=== PATIENT | female | born 1970 | race Caucasian/White ===

== ENCOUNTER 2021-03-20 16:20 | Outpatient (CLI) | payer BC, MEDICARE | END 2021-03-20 16:21 | disposition home or self-care (01) | LOC: CSHMRI 16:20 | PROVIDERS: ATTEND Specialist | DX: M54.14 Radiculopathy, thoracic region (principal) | CPT/HCPCS: 72146 ==

== ENCOUNTER 2021-09-21 10:39 | Outpatient (CLI) | payer BC, MEDICARE | END 2021-09-21 10:40 | disposition home or self-care (01) | LOC: CSHCT 10:39 | PROVIDERS: ATTEND Specialist | DX: R91.1 Solitary pulmonary nodule (principal) | CPT/HCPCS: 71260 ==

== ENCOUNTER 2022-06-25 17:11 | Emergency (ER) | payer BC, MEDICARE ==
[2022-06-25] MEDS ORDERED: Ketorolac Tromethamine 30 MG/ML VIAL ONE (18:48)
[2022-06-25] MEDS ORDERED: Morphine 10 MG/ML VIAL ONE (18:49)
[2022-06-25 19:07] LABS: Bilirubin Neg (Negative); Blood, Urine 25 (Negative); Clarity Clear (Clear); Glucose, Urine (Dipstick) Normal (Negative); Ketone, Urine Negative (Negative); Leukocyte Negative (Negative); Nitrite Negative (Negative); Protein, Urine (Dipstick) Negative (Neg-Trace); Urobilinogen Normal mg/dL (Less than 2)
[2022-06-25 19:16] LABS: Pregnancy Test - Urine (BHCG) Negative (Negative); Pregu Control Background? CLEAR/WHITE (CLR/WHITE); Pregu Control Bar Appear? YES (CONTROL BAR)
[2022-06-25 19:17] LABS: Bacteria/HPF None Seen HPF (None Seen); RBC/HPF None Seen HPF (0-3); Squamous Epithelial 0-3 HPF (0-3); WBC/HPF None Seen HPF (0-3)
[2022-06-25] MEDS ORDERED: HYDROcodone/Acetaminophen 10/325 mg Tablet ONE (20:21)
== END 2022-06-25 20:30 | disposition home or self-care (01) ==
LOC: CSHERS 17:11
DX: M54.50 Low back pain, unspecified (principal); G89.29 Other chronic pain; E05.90 Thyrotoxicosis, unspecified without thyrotoxic crisis or storm; I10 Essential (primary) hypertension; E78.5 Hyperlipidemia, unspecified; F17.210 Nicotine dependence, cigarettes, uncomplicated
CPT/HCPCS: 74176; 81003; 81015; 81025; 96372; J1885; J2270

== ENCOUNTER 2023-04-11 12:49 | Outpatient (CLI) | payer BC, MEDICARE ==
[~2023-04-11 12:49] MED LIST: Magnevist 469MG/ML 20 ML VIAL ONE
== END 2023-04-11 12:50 | disposition home or self-care (01) ==
LOC: CSHCT 12:49
PROVIDERS: ATTEND Neurological Surgery
DX: R91.1 Solitary pulmonary nodule (principal); M47.22 Other spondylosis with radiculopathy, cervical region; M54.50 Low back pain, unspecified; Z98.890 Other specified postprocedural states; M47.816 Spondylosis without myelopathy or radiculopathy, lumbar region; M47.817 Spondylosis without myelopathy or radiculopathy, lumbosacral region; M48.02 Spinal stenosis, cervical region; M48.03 Spinal stenosis, cervicothoracic region
CPT/HCPCS: 71250; 72131; 72156; A9579

== ENCOUNTER 2023-05-09 13:58 | Outpatient (CLI) | payer BC, MEDICARE | END 2023-05-09 13:59 | disposition home or self-care (01) | LOC: CSHCT 13:58 | PROVIDERS: ATTEND Neurological Surgery | DX: M47.22 Other spondylosis with radiculopathy, cervical region (principal); Z98.1 Arthrodesis status | CPT/HCPCS: 72125 ==